=== PATIENT | female | born 2000 | race Caucasian/White ===

== ENCOUNTER → 2020-01-22 | Outpatient (CLI) | payer BC ==
[~2020-01-22] MED LIST: BENA25CA4 PO; BRONCHW PO; CLAR10CA3 PO; CVS10CAP7 PO; FERR325T3 PO; PSEU120T19 PO; QC F0.52 PO
== END ==
LOC: M LABSMTC 10:27
PROVIDERS: ATTEND Anesthesiology
DX: Z03.818 Encounter for observation for suspected exposure to other biological agents ruled out (principal); Z11.59 Encounter for screening for other viral diseases
CPT/HCPCS: C9803; U0003

== ENCOUNTER 2020-01-25 11:05 | Day surgery (SDC) | payer BC ==
[~2020-01-25] VITALS: Ht 167.6 cm; Wt 130.2 kg
[~2020-01-25 11:05] MED LIST changes: +NS 1,000 ML IV ONE
[2020-01-25] MEDS ORDERED: LIDOCAINE 2% 100MG/5ML SDV (FOR ANES.) As Ordered ONE (13:19)
[2020-01-25] MEDS ORDERED: propofoL 500 MG/50 ML VIAL As Ordered ONE (13:19)
[2020-01-25] MEDS ORDERED: fentaNYL 100 MCG/2 ML INJECTION (J3010) As Ordered ONE (13:19)
--- NOTE | 2020-01-25 13:42 | ROOR ---
Patient Name: Hanh Centeno Procedure Date: 01/25/2020 1:06 PM Date of : 2000 Age: 19 Room: [facility] Gender: Female Note Status: Finalized Procedure: Upper GI endoscopy Indications: Positive celiac serologies Providers: Jean Paul Pelaez MD Referring MD: Naresh Wright MD Requesting Provider: Medicines: Monitored Anesthesia Care Complications: No immediate complications. Procedure: Pre-Anesthesia Assessment: - Prior to the procedure, a History and Physical was performed, and patient medications and allergies were reviewed. The patient is competent. The risks and benefits of the procedure and the sedation options and risks were discussed with the patient. All questions were answered and informed consent was obtained. Patient identification and proposed procedure were verified by the physician, the nurse and the anesthesiologist in the procedure room. Mental Status Examination: alert and oriented. Airway Examination: normal oropharyngeal airway and neck mobility. Respiratory Examination: clear to auscultation. CV Examination: normal. Prophylactic Antibiotics: The patient does not require prophylactic antibiotics. Prior Anticoagulants: The patient has taken no previous anticoagulant or antiplatelet agents. ASA Grade Assessment: II - A patient with mild systemic disease. After reviewing the risks and benefits, the patient was deemed in satisfactory condition to undergo the procedure. The anesthesia plan was to use monitored anesthesia care (MAC). Immediately prior to administration of medications, the patient was re-assessed for adequacy to receive sedatives. The heart rate, respiratory rate, oxygen saturations, blood pressure, adequacy of pulmonary ventilation, and response to care were monitored throughout the procedure. The physical status of the patient was re-assessed after the procedure. The Endoscope was introduced through the mouth, and advanced to the second part of duodenum. The upper GI endoscopy was accomplished without difficulty. The patient tolerated the procedure well. Findings: The examined esophagus was normal. The Z-line was regular and was found 40 cm from the incisors. Scattered moderate inflammation characterized by erosions, friability and granularity was found in the gastric antrum. Biopsies were taken with a cold forceps for Helicobacter pylori testing. Verification of patient identification for the specimen was done by the physician and nurse using the patient's name, date and medical record number. Estimated blood loss was minimal. Patchy atrophic mucosa was found in the duodenal bulb. Multiple biopsies were obtained in the duodenal bulb and in the second portion of the duodenum with cold forceps for evaluation of celiac disease. Normal mucosa was found in the second portion of the duodenum, in the area of the papilla and in the third portion of the duodenum. Impression: - Normal esophagus. - Z-line regular, 40 cm from the incisors. - Gastritis. Biopsied. - Duodenal mucosal atrophy. - Normal mucosa was found in the second portion of the duodenum, in the area of the papilla and in the third portion of the duodenum. - Multiple biopsies were obtained in the duodenal bulb and in the second portion of the duodenum. Recommendation: - Patient has a contact number available for emergencies. The signs and symptoms of potential delayed complications were discussed with the patient. Return to normal activities tomorrow. Written discharge instructions were provided to the patient. - High fiber diet and gluten free diet. - Continue present medications. - Await pathology results. - Telephone GI clinic for pathology results in 2 weeks. - Return to primary care physician. Jean Paul Pelaez MD Jean Paul Pelaez MD 01/25/2020 1:42:15 PM Electronically signed by Jean Paul Pelaez MD Number of Addenda: 0 Note Initiated On: 01/25/2020 1:06 PM Estimated Blood Loss: Estimated blood loss was minimal.
[2020-01-25 14:08] VITALS: BP 127/76
== END 2020-01-25 14:11 | disposition home or self-care (01) ==
LOC: M OPP 11:05
PROVIDERS: ATTEND Internal Medicine Gastroenterology
DX: K29.70 Gastritis, unspecified, without bleeding (principal); K31.89 Other diseases of stomach and duodenum; R76.8 Other specified abnormal immunological findings in serum; Z88.1 Allergy status to other antibiotic agents
CPT/HCPCS: 43239; 88305; J3010